=== PATIENT | female | born 1985 | race Two or more races ===

== ENCOUNTER 2018-03-13 09:35 | Inpatient (IN) | payer MEDICAID ==
[2018-02-28 11:19] LABS: APPEARANCE,URINE SLIGHTLY CLOUDY; BILIRUBIN, URINE NEGATIVE (NEGATIVE); COLOR,URINE YELLOW; GLUCOSE, URINE (UA) NEGATIVE (NEGATIVE); KETONES,URINE NEGATIVE (NEGATIVE); LEUKOCYTE ESTERASE ,URINE 1+ (NEGATIVE); NITRITE,URINE NEGATIVE (NEGATIVE); PH,URINE 8 (4.5-8.0); PROTEIN,URINE NEGATIVE (NEGATIVE); UROBILINOGEN,URINE 1 MG/DL (0.0-1.0)
[2018-02-28 11:25] LABS: BASOPHILS % (AUTO) 0.9 % (0.0-2.0); EOSINOPHILS % (AUTO) 0.1 % (0.0-3.0); HEMATOCRIT 35.2 % (37.0-47.0); HEMOGLOBIN 12.3 G/DL (12.0-16.0); LYMPHOCYTES % (AUTO) 40.8 % (20.0-45.0); MEAN CORPUSCULAR VOLUME 93 FL (80-99); MONOCYTES % (AUTO) 10.7 % (1.0-10.0); NEUTROPHILS % (AUTO) 47.5 % (45.0-75.0); PLATELET COUNT 255 K/UL (150-450); RED BLOOD COUNT 3.78 M/UL (4.20-5.40); RED CELL DISTRIBUTION WIDTH 16.2 % (11.6-14.8)
[2018-02-28 11:36] LABS: INR 0.9 (0.9-1.1)
[2018-02-28 11:40] LABS: ANION GAP 6 mmol/L (5-15); BLOOD UREA NITROGEN 9 mg/dL (7-18); CALCIUM 8.5 MG/DL (8.5-10.1); CARBON DIOXIDE 32 MMOL/L (21-32); CHLORIDE 105 MMOL/L (98-107); CREATININE 0.5 MG/DL (0.55-1.30); POTASSIUM 3.4 MMOL/L (3.5-5.1); SODIUM 143 MMOL/L (136-145)
--- NOTE | 2018-02-28 12:56 | Diagnostic Imaging Report ---
Indication: Cough Comparison: None 2 views of the chest obtained. Findings: Cardiomediastinal silhouette and pulmonary vascularity are within normal limits for age. Right chest port is present in good position. The diaphragmatic contour is smooth and costophrenic angles are sharp. No pleural effusions are identified. The bones are unremarkable. Impression: No acute disease
--- NOTE | 2018-03-12 11:15 | Pre-op HX & Phy Repo 2 SIG ---
DATE OF ADMISSION: 03/13/2018 PREOPERATIVE HISTORY AND PHYSICAL DATE OF SCHEDULED OUTPATIENT SURGERY: 03/13/2018 HISTORY OF PRESENT ILLNESS: The patient is a 32-year-old female in overall good health, who presented in August 2017, with a mass in the left breast upper inner quadrant. Core-needle biopsies revealed invasive ductal carcinoma of a 3 x 3 cm mass into the periphery of the left breast upper inner quadrant at 11 o'clock. Tumor markers were obtained revealing that she was HER2-positive, but estrogen and progesterone receptor negative. She was referred to Oncology. She underwent genetic testing because of her age and this was negative. She underwent chemotherapy because of her HER2-positive status, which completed at the end of January with marked reduction in the size of the mass. She is now scheduled to undergo left breast partial mastectomy with left axillary lymph node biopsy. PAST MEDICAL HISTORY: Before chemotherapy, she was taking no medications. Since chemotherapy, she has been receiving Herceptin intravenously, Perjeta intravenously, Compazine, dexamethasone, loperamide, Zofran. ALLERGIES TO MEDICATIONS: None. OPERATIONS: The patient has had section. PHYSICAL EXAMINATION: GENERAL: The patient is 5 feet 3 inches, 180 pounds. Vital signs within normal limits. HEENT: Within normal limits. LUNGS: Clear. HEART: Regular rhythm. BREASTS: Examination of the breasts reveals large ptotic breasts without skin and nipple changes. The right breast was unremarkable. Examination of the left breast previously revealed a 3 x 3 cm mass near the periphery of the upper inner quadrant at 11 o'clock. Since her chemotherapy, the mass has markedly decreased, but there was persistent thickening at the same area, 2 x 3 cm with ultrasound of that area confirming clips at the palpable thickening. There was no palpable axillary or supraclavicular lymphadenopathy. ABDOMEN: Soft. PELVIC: Per internet salesperson recently. RECTAL: Per internet salesperson recently. EXTREMITIES: Without edema. NEUROLOGIC: Physiologic. IMPRESSION: Invasive ductal carcinoma, left breast, HER2-positive, status post neoadjuvant chemotherapy. PLAN: Full discussion has been had with the patient regarding the nature of her condition, the nature of the surgery, indications, alternatives, options, and risks. She understands she will undergo left breast partial mastectomy with intraoperative pathology evaluation and left axillary lymph node biopsy via a separate incision. She understands the risks to include bleeding, infection, need for additional surgery pending final pathology report of the breast and of the axilla, change in contour or shape of the breast, pain and discomfort in the upper extremity, need for drain in the axilla, scarring, etc. All questions have been answered. She understands and agrees to proceed. Charlie Hudson M.D. DR: Portia JOB#: [id number] CC:
[2018-03-13] VITALS (13 sets, daily range): BP systolic 96–115; BP diastolic 49–67
[~2018-03-13] VITALS: Ht 160 cm; Wt 81.6 kg
[~2018-03-13 09:35] MED LIST: ceFAZolin sod 2 GM in D5W 55 ML IVPB ONE; zofran PO
[2018-03-13] MEDS ORDERED: fentaNYL 100 mcg/2 mL IV ONE ×2 (10:54→14:21)
[2018-03-13] MEDS ORDERED: Lidocaine 1% MPF 10mg/ml 5ml ONE (10:54)
[2018-03-13] MEDS ORDERED: Propofol 200mg/20ml IV ONE (10:54)
[2018-03-13] MEDS ORDERED: Midazolam 2mg/2ml Inj ONE (10:54)
--- NOTE | 2018-03-13 11:05 | Pre-Procedure Note/Attestation ---
Pre-Procedure Note/Attestation Complete Prior to Procedure Planned Procedure: left Procedure Narrative: left breast partial mastectomy and left axillary lymph node biopsy Indications for Procedure Pre-Operative Diagnosis: invasive ductal carcinoma left breast Attestation I attest that I discussed the nature of the procedure; its benefits; risks and complications; and alternatives (and the risks and benefits of such alternatives ), prior to the procedure, with the patient (or the patient's legal sales donor recruitment representative). I attest that, if there was a reasonable possibility of needing a blood transfusion, the patient (or the patient's legal sales donor recruitment representative) was given the [facility] standardized written summary, pursuant to the Uli Maribeth Blood Safety Act ([place] Health and Safety Code # 1645, as amended). I attest that I re-evaluated the patient just prior to the surgery and that there has been no change in the patient's H&P, except as documented below: none YULI NEGRO Mar 13, 2018 11:05
[2018-03-13 11:10] LABS: APPEARANCE,URINE TURBID; BILIRUBIN, URINE 1+ (NEGATIVE); GLUCOSE, URINE (UA) NEGATIVE (NEGATIVE); KETONES,URINE NEGATIVE (NEGATIVE); LEUKOCYTE ESTERASE ,URINE 3+ (NEGATIVE); NITRITE,URINE NEGATIVE (NEGATIVE); PH,URINE 7 (4.5-8.0); PROTEIN,URINE 2+ (NEGATIVE); UROBILINOGEN,URINE 4 MG/DL (0.0-1.0)
[2018-03-13 11:14] LABS: COLOR,URINE YELLOW
[2018-03-13] MEDS ORDERED: Lidocaine 1% 10mg/ml/Epi 0.005mg/ml 30ml vial INJ ONE (12:09)
[2018-03-13] MEDS ORDERED: NS Irrig 1000ml IRRIG ONE (12:15)
[2018-03-13] MEDS ORDERED: Ketorolac 30mg Inj ONE (13:01)
[2018-03-13] MEDS ORDERED: Morphine Sulfate 10mg/ml Inj ONE (13:01)
[2018-03-13] MEDS ORDERED: Sodium Chloride 10ml vial INJ ONE (13:01)
[2018-03-13] MEDS ORDERED: LR 1000ml 1,000 ML IVLG SCH ×2 (13:09→14:18)
--- NOTE | 2018-03-13 13:09 | Anethesia Preoperative Eval ---
Anesthesia Pre-op PMH/ROS General Date of Evaluation: Mar 13, 2018 Time of Evaluation: 12:02 Anesthesiologist: Car ASA Score: ASA 2 Mallampati Score Class I : Soft palate, uvula, fauces, pillars visible Class II: Soft palate, uvula, fauces visible Class III: Soft palate, base of uvula visible Class IV: Only hard plate visible Mallampati Classification: Class II Surgeon: Tristan Diagnosis: L breast ca Surgical Procedure: L partial mastectomy with axillary l/n disection Anesthesia History: none Family History: no anesthesia problems Allergies: Coded Allergies: No Known Allergies (Unverified , 03/12/18) Medications: see eMAR Past Medical History Cardiovascular: Denies: HTN, CAD, [place], valve dz, arrhythmia, other Pulmonary: Denies: asthma, COPD, VENANCIO, other Gastrointestinal/Genitourinary: Reports: GERD; Denies: CRI, ESRD, other Neurologic/Psychiatric: Reports: depression/anxiety; Denies: dementia, CVA, TIA, other Endocrine: Denies: DM, hypothyroidism, steroids, other HEENT: Denies: cataract (L), cataract (R), glaucoma, [place] (L), [place] (R), other Hematology/Immune: Denies: anemia, DVT, bleeding disorder, other Musculoskeletal/Integumentary: Denies: OA, RA, DJD, DDD, edema, other Other: obesity PMH Narrative: as above PSxH Narrative: Anesthesia Pre-op Phys. Exam Physician Exam Last Vital Signs Date Time Temp Pulse Resp B/P (MAP) Pulse Ox O2 Delivery O2 Flow Rate FiO2 03/13/18 10:48 98.8 79 18 115/63 99 Room Air 98.8 Constitutional: NAD Neurologic: CN 2-12 intact Cardiovascular: RRR, no M/R/G Respiratory: CTA Gastrointestinal: other - obesity Airway Exam Mallampati Score: Class II MO: full Neck: flexible ROM: full Teeth: intact Dentures: no upper, no lower Anesthesia Pre-op A/P Labs see chart Urine Test Test 03/13/18 09:50 Urine HCG, Qualitative Negative (NEGATIVE) Risk Assessment & Plan Assessment: ASA 2 Plan: GA with LMA Status Change Before Surgery: No Pre-Antibiotics Drug: Ancef 1 gr. Given Within 1 Hr of Incision: Yes Time Given: 12:48 BLAYNE HURTADO M.D. Mar 13, 2018 13:09
[2018-03-13] MEDS ORDERED: DiphenhydrAMINE 50mg/ml Inj IVP PRN ×2 (13:15→14:30)
[2018-03-13] MEDS ORDERED: Meperidine 50mg/ml Inj(FOR RIGORS ONLY) IV PRN (13:15)
[2018-03-13] MEDS ORDERED: Midazolam 2mg/2ml Inj IVP PRN ×2 (13:15→14:30)
[2018-03-13] MEDS ORDERED: Ketorolac 30mg Inj IV PRN ×2 (13:15→14:30)
[2018-03-13] MEDS ORDERED: Hydromorphone 0.5mg/0.5ml inj IVP PRN ×2 (13:15→14:30)
--- NOTE | 2018-03-13 14:48 | Brief Operative Note ---
Immediate Post Operative Note Operative Note Pre-op Diagnosis: invasive ductal carcinoma left breast Procedure: left breast partial mastectomy and left axillary lymph node biopsy Post-op Diagnosis: same Post-op Diagnosis: same as pre-op Findings: consistent w/pre-op dx studies Surgeon: earnest Anesthesiologist: cortes Anesthesia: general Specimen: yes - left breast partial mastectomy; left axillary lymph node Complications: none Condition: stable Fluids: see anesthesia record Estimated Blood Loss: minimal Drains: SURAJ Implant(s) used?: No YULI NEGRO Mar 13, 2018 14:48
--- NOTE | 2018-03-13 16:00 | Operative Note - Dictated ---
DATE OF OPERATION: 03/13/2018 SURGEON: Charlie Hudson M.D. ANESTHESIOLOGIST: Dr. Yoon. TYPE OF ANESTHESIA: General. SURGICAL COORDINATOR: None. PREOPERATIVE DIAGNOSIS: Invasive ductal carcinoma, left breast. POSTOPERATIVE DIAGNOSIS: Invasive ductal carcinoma, left breast. OPERATION PERFORMED: Left breast partial mastectomy and left axillary lymph node biopsy. DESCRIPTION OF PROCEDURE: The patient was taken to the operating room and under general anesthesia with sequential compression device stockings in place and having received intravenous antibiotics, the patient was prepped and draped in usual fashion. The breast cancer was located in the periphery of the upper inner quadrant of the left breast at the 11 o'clock position. Since the patient had been HER2-positive. She received neoadjuvant chemotherapy with marked decrease in the palpable mass. An appropriately-located curvilinear incision was made and flaps dissected circumferentially. The dissection was taken down to the pectoralis fascia and the quadrant of tissue resected using cautery for hemostasis. The sutures were placed to ben superior, anterior, and medial. Specimen was given to the pathologist who confirmed the presence of the lesion with the clip placed at core needle biopsy and stated the closest margin was inferior, less than 1 cm. Additional inferior tissue was taken to have a more adequate margin. The field was copiously irrigated with saline and hemostasis was secured with cautery. The incision was closed with interrupted inverted 2-0 Vicryl deep dermal subcutaneous sutures followed by continuous 4-0 Monocryl subcuticular suture. Attention was then directed to the left axilla where a transverse curvilinear left axillary incision was made achieving hemostasis with cautery. The clavipectoral fascia was incised and one somewhat enlarged lymph node was readily evident. It was resected using clips and cautery for hemostasis and given to the pathologist who confirmed the presence of lymph node. The field was irrigated and hemostasis was secured. Through a separate stab incision inferior, a 19 mm round Otoniel drain was placed into the axilla and sutured to the skin with a 2-0 silk suture. The incision was then closed with interrupted 3-0 Vicryl on the clavipectoral fascia and subcutaneous tissues and 4-0 Monocryl subcuticular suture. Then tincture of benzoin and half-inch Steri-Strips were applied to both incisions followed by dry sterile dressings. The patient was then placed into a surgical brassiere over the dressings. The patient tolerated the procedure well and left the operating room in good condition. Final sponge and needle counts were correct. Charlie Hudson M.D. DR: Portia JOB#: [id number] CC:
[2018-03-13] MEDS: D5 1/2NS w/KCl 20mEq 1,000 ML IV SCH (18:50)
[2018-03-14] VITALS: BP 102/53
[2018-03-14] MEDS: Norco 5mg/325mg tab ORAL PRN (00:18)
[2018-03-14 04:00] VITALS: BP 98/58
[2018-03-14] MEDS: D5 1/2NS w/KCl 20mEq 1,000 ML IV SCH (05:21)
[2018-03-14 08:00] VITALS: BP 107/67
--- NOTE | 2018-03-14 11:01 | Immediate Post-Op Evaluation ---
Immediate Post-Op Evalulation Immediate Post-Op Evalulation Procedure: L partial mastectomy with axillary l/n dissection Date of Evaluation: Mar 13, 2018 Time of Evaluation: 14:50 IV Fluids: 1200 Blood Products: none Estimated Blood Loss: 70 Urinary Output: none Blood Pressure Systolic: 116 Blood Pressure Diastolic: 58 Pulse Rate: 74 Respiratory Rate: 20 O2 Sat by Pulse Oximetry: 99 Temperature (Fahrenheit): 97.6 Pain Score (1-10): 2 Nausea: No Vomiting: No Complications none Patient Status: reacts, patent, none Hydration Status: adequate BLAYNE HURTADO M.D. Mar 14, 2018 11:01
--- NOTE | 2018-03-14 11:02 | 48 Hour Post Anesthesia Eval ---
Post Anesthesia Evaluation Procedure: L partial mastectomy with axillary l/n dissection Date of Evaluation: Mar 14, 2018 Time of Evaluation: 07:05 Blood Pressure Systolic: 109 0: 62 Pulse Rate: 76 Respiratory Rate: 20 Temperature (Fahrenheit): 97.5 O2 Sat by Pulse Oximetry: 98 Airway: patent Nausea: No Vomiting: No Pain Intensity: 3 Hydration Status: adequate Cardiopulmonary Status: stable Mental Status/LOC: patient returned to baseline Follow-up Care/Observations: n/a Post-Anesthesia Complications: none Follow-up care needed: ready to discharge BLAYNE HURTADO M.D. Mar 14, 2018 11:02
[2018-03-14 12:00] VITALS: BP 99/64
[2018-03-14 16:00] VITALS: BP 107/64
--- NOTE | 2018-03-14 16:16 | General Progress Note ---
Progress Note Progress Note AVSS Requiring Dilaudid SQ for pain. Nausea controlled with Zofran Left breast incision clean and dry, minimal swelling. Left axillary incision clean and dry Otoniel drain 30cc serosang overnight Imp. Pain post-op Plan: encourage use of po meds instruct re care of drain anticipate discharge in YULI MONTANO Mar 14, 2018 16:15
[2018-03-14 20:00] VITALS: BP 112/65
[2018-03-15 00:04] VITALS: BP 108/62
[2018-03-15 04:00] VITALS: BP 104/67
[2018-03-15] MEDS: Norco 5mg/325mg tab ORAL PRN (06:33)
[2018-03-15 08:00] VITALS: BP 99/67
--- NOTE | 2018-03-15 08:30 | General Progress Note ---
Progress Note Progress Note AVSS doing better with ambulation and pain control left breast and axillary incisions clean and dry with intact steristrips SURAJ drain 14cc Imp. Improved Plan: discharge with dressing supplies Rx [place] #[id number] f/u Clinic 03/18 Instructions/limitations discussed YULI NEGRO Mar 15, 2018 08:30
[2018-03-15] MEDS ORDERED: NORCO 5-325 TA1 EACH ORAL (11:35)
[2018-03-15 12:51] VITALS: BP 122/79
--- NOTE | 2018-03-18 12:16 | Discharge Summary ---
Discharge Summary Hospital Course Date of Admission Mar 13, 2018 at 17:27 Date of Discharge Mar 15, 2018 at 14:00 Admitting Diagnosis left breast invasive ductal carcinoma Reason for Hospitalization: elective surgery BRUNILDA Escobar is a 32 year old female who was admitted on Mar 13, 2018 at 17:27 for left breast invasive ductal carcinoma. Patient was admitted for elective surgery, Procedures s/p 03/13/[address] Hudson Left breast partial mastectomy and left axillary lymph node biopsy. Hospital Course s/p surgery course of recovery uneventful pain management a/emetic pr careful monitoring of SURAJ drain ambulated tolerated diet pain controlled left breast and axillary incisions clean and dry with intact steri-strips, minimal swelling instructed on care of drain dc with dressing supplies scripts for analgesics provided fup in clinic with surgeon on 03/18 DISCHARGE DIAGNOSIS Invasive ductal carcinoma, left breast, HER2-positive, status post neoadjuvant chemotherapy. s/p Left breast partial mastectomy and left axillary lymph node biopsy. Discharge Medications Continued Medications: Hydrocodone Bit/Acetaminophen 5-325* ([place] 5-325*) 1 Each Tablet 1 TAB ORAL Q4H PRN for For Pain, #24 TAB 0 Refills (This prescription has been renewed) [zofran] () 10 MG PO PRN PRN for Nausea & Vomiting Discharge Condition Upon Discharge: stable Discharge Disposition Patient was discharged to Home (01) Discharge Instructions Discharge Instructions Special Instructions I have been assigned to complete a D/C Summary on this account. I was not involved in the patient management Patricia Gardner NP ([place]) Mar 18, 2018 12:16
== END 2018-03-15 14:00 | disposition home or self-care (01) | DRG 363 ==
LOC: SUR 09:35 → 3E 17:27
PROC: 07B90ZX Excision of Left Internal Mammary Lymphatic, Open Approach, Diagnostic (ICD-10-PCS; 2018-03-13)
PROC: 0HBU0ZZ Excision of Left Breast, Open Approach (ICD-10-PCS; principal; 2018-03-13 12:00)
DX: C50.212 Malignant neoplasm of upper-inner quadrant of left female breast (principal); F32.9 Major depressive disorder, single episode, unspecified; K21.9 Gastro-esophageal reflux disease without esophagitis; F41.9 Anxiety disorder, unspecified; Z17.0 Estrogen receptor positive status [ER+]
CPT/HCPCS: 36415; 71046; 80048; 81001; 81003; 81025; 84703; 85025; 85610; 85730; 87086; 94003; 94150; 94760; J2250; J2405